=== PATIENT | female | born 1935 | race Caucasian/White ===

== ENCOUNTER 2022-07-28 20:42 | Emergency (ER) | payer BC, MEDICARE ==
[~2022-07-28] VITALS: Ht 165.1 cm; Wt 77.2 kg
[~2022-07-28 20:42] MED LIST: ADVAIR DISKUS; ALLEVE; ASPI81TA3; LISI20TA5; METO-743; MULTIVIT; NICO21DI4; No Historical Meds; PLAV75TA2; ZOCO10TA
[2022-07-28 21:15] LABS: BASO # 0.1 10^3/uL (0.0-0.2); BASO % 0.6 % (0.0-1.0); EOS # 0.2 10^3/uL (0.0-0.5); EOS % 3.1 % (0.0-3.0); HEMATOCRIT 37.5 % (36.0-47.0); HEMOGLOBIN 12.3 g/dl (12.0-15.5); LYMPH # 1.6 10^3/uL (1.5-5.0); LYMPH % 20.7 % (24.0-44.0); MEAN CORPUSCULAR HEMOGLOBIN 31.8 pg (27.0-33.0); MEAN CORPUSCULAR HGB CONC 32.8 g/dl (32.0-36.5); MEAN CORPUSCULAR VOLUME 96.9 fl (80.0-96.0); MONO # 1.2 10^3/uL (0.0-0.8); MONO % 14.7 % (2.0-8.0); NEUTROPHILS # 4.8 10^3/uL (1.5-8.5); NEUTROPHILS % 60.6 % (36.0-66.0); PLATELET COUNT, AUTOMATED 234 10^3/uL (150-450); RED BLOOD COUNT 3.87 10^6/uL (4.00-5.40); WHITE BLOOD COUNT 7.8 10^3/uL (4.0-10.0)
[2022-07-28 21:30] LABS: INR 1.03; PROTHROMBIN TIME 13.7 SECONDS (12.5-14.5)
[2022-07-28 21:37] LABS: CK-MB VALUE MASS 1.3 NG/ML (<3.6)
[2022-07-28 21:40] LABS: ALBUMIN 4.2 G/DL (3.2-5.2); BILIRUBIN,DIRECT 0.2 MG/DL (<0.4); BILIRUBIN,TOTAL 0.5 MG/DL (0.3-1.2); CALCIUM LEVEL 9.3 MG/DL (8.3-10.6); CREATININE FOR GFR 1.65 MG/DL (0.55-1.30); GLOMERULAR FILTRATION RATE 31.3 (>32); MB/CK RELATIVE INDEX 1.15 (< OR =4); POTASSIUM SERUM 3.7 MMOL/L (3.5-5.1); TOTAL PROTEIN 7.6 G/DL (5.7-8.2)
[2022-07-28] MEDS ORDERED: KETOROLAC 30 MG/ML 1ML VIAL IV ONE (23:15)
[2022-07-28] MEDS ORDERED: ISOVUE-370 76% 100ML VIAL As Ordered ONE (23:20)
[2022-07-29] VITALS: TEMP 98
[2022-07-29 00:01] LABS: CK-MB VALUE MASS 1.9 NG/ML (<3.6)
[2022-07-29 00:03] LABS: MB/CK RELATIVE INDEX 1.49 (< OR =4)
[2022-07-29 00:05] LABS: RSV AMPLIFICATION NEGATIVE (NEGATIVE)
[2022-07-29 01:00] VITALS: BP 146/69; O2SAT 96
== END 2022-07-29 03:00 | disposition home or self-care (01) ==
LOC: M ED 20:42
DX: R07.9 Chest pain, unspecified (principal); R91.8 Other nonspecific abnormal finding of lung field; I10 Essential (primary) hypertension; J44.9 Chronic obstructive pulmonary disease, unspecified; Z79.82 Long term (current) use of aspirin; Z79.899 Other long term (current) drug therapy
CPT/HCPCS: 71045; 71275; 80053; 82248; 82550; 82553; 83690; 84484; 85025; 85610; 87631; 93005; 96374; 99284; J1885; Q9967